=== PATIENT | male | born 1995 | race African-American/Black ===

== ENCOUNTER 2021-05-17 13:38 | Emergency (ER) | payer SELFPAY ==
[2021-05-17] MEDS ORDERED: Dexamethasone 4 mg/ml Vial ONE (15:57)
[2021-05-17] MEDS ORDERED: Ketorolac Tromethamine 30 MG/ML VIAL ONE (15:57)
== END 2021-05-17 14:30 | disposition home or self-care (01) ==
LOC: ERS 13:38
DX: J02.9 Acute pharyngitis, unspecified (principal); F17.210 Nicotine dependence, cigarettes, uncomplicated
CPT/HCPCS: 87081; 87430; 96372; 99284; J1100; J1885

== ENCOUNTER 2021-09-07 20:00 | Emergency (ER) | payer SELFPAY ==
[2021-09-07] MEDS ORDERED: Ketorolac Tromethamine 30 MG/ML VIAL ONE ×2 (21:19→21:20)
== END 2021-09-07 22:12 | disposition home or self-care (01) ==
LOC: ERS 20:00
DX: M62.830 Muscle spasm of back (principal); Z87.891 Personal history of nicotine dependence
CPT/HCPCS: 96372; 99283; J1885